=== PATIENT | male | born 1965 | race African-American/Black ===

== ENCOUNTER 2017-09-01 22:18 | Emergency (ER) | payer MEDICAID ==
[~2017-09-01] VITALS: Ht 175.3 cm; Wt 104.0 kg
[~2017-09-01 22:18] MED LIST: ASPIRIN; ENALAPRIL; FUROSEMIDE; METOPROLOL; NIFE60TA10; TOPIRAMATE; [UNRECOGNIZED DRUG - OTHER]
[2017-09-01] MEDS ORDERED: LORAZEPAM 0.5MG TABLET PO ONE (22:45)
[2017-09-01 23:18] LABS: BASOPHILS % 0.9 % (0.0-2.0); EOSINOPHILS % 1.5 % (0.0-5.0); HEMOGLOBIN. 14.5 g/dL (14.0-18.0); MEAN CORPUSCULAR HEMOGLOBIN 28.8 pg (28.0-32.0); MEAN CORPUSCULAR VOLUME 85.4 fL (80.0-94.0); MEAN PLATELET VOLUME 7.4 fl (7.4-10.4); MONOCYTES % 4.7 % (2.0-8.0); NEUTROPHILS % 73.9 % (40.0-76.0); PLATELET 249 x1000/uL (130-400); RED BLOOD CELL COUNT 5.04 mill/uL (4.7-6.1); RED CELL DISTRIBUTION WIDTH 13.7 % (11.6-14.6)
[2017-09-01 23:22] LABS: CHLORIDE 104 mEq/L (98-107)
[2017-09-01 23:26] LABS: INR 1.1; PROTHROMBIN TIME 11.4 sec (9.4-11.6)
[2017-09-02] VITALS: BP 99/82
== END 2017-09-02 00:02 | disposition home or self-care (01) ==
LOC: ER 22:26
DX: G40.909 Epilepsy, unspecified, not intractable, without status epilepticus (principal); I10 Essential (primary) hypertension; F17.200 Nicotine dependence, unspecified, uncomplicated; Z79.82 Long term (current) use of aspirin
CPT/HCPCS: 36415; 80053; 82962; 85025; 85610; 99284

== ENCOUNTER 2017-11-29 11:07 | Emergency (ER) | payer MEDICAID ==
[~2017-11-29] VITALS: Ht 175.3 cm; Wt 104.0 kg
[2017-11-29 13:32] LABS: BASOPHILS % 0.9 % (0.0-2.0); EOSINOPHILS % 1.1 % (0.0-5.0); HEMATOCRIT. 43.1 % (42.0-52.0); HEMOGLOBIN. 14.3 g/dL (14.0-18.0); LYMPHOCYTES % 12.9 % (20.0-50.0); MEAN CORPUSCULAR HEMOGLOBIN 28.5 pg (28.0-32.0); MEAN CORPUSCULAR VOLUME 85.7 fL (80.0-94.0); MEAN PLATELET VOLUME 7.7 fl (7.4-10.4); MONOCYTES % 5.3 % (2.0-8.0); NEUTROPHILS % 79.8 % (40.0-76.0); PLATELET 200 x1000/uL (130-400); RED BLOOD CELL COUNT 5.02 mill/uL (4.7-6.1)
[2017-11-29 13:39] LABS: CHLORIDE 103 mEq/L (98-107)
[2017-11-29 15:11] VITALS: BP 176/113
== END 2017-11-29 15:27 | disposition home or self-care (01) ==
LOC: ER 11:29
DX: R56.9 Unspecified convulsions (principal); I10 Essential (primary) hypertension; Z86.73 Personal history of transient ischemic attack (TIA), and cerebral infarction without residual deficits; Z79.82 Long term (current) use of aspirin; Z79.899 Other long term (current) drug therapy; Z88.1 Allergy status to other antibiotic agents
CPT/HCPCS: 36415; 80053; 85025; 99284; Z7610

== ENCOUNTER 2017-12-13 14:29 | Emergency (ER) | payer MEDICAID ==
[~2017-12-13] VITALS: Ht 162.6 cm; Wt 123.0 kg
[2017-12-13 15:32] LABS: BASOPHILS % 0.9 % (0.0-2.0); EOSINOPHILS % 2.8 % (0.0-5.0); HEMATOCRIT. 43.2 % (42.0-52.0); HEMOGLOBIN. 14.5 g/dL (14.0-18.0); LYMPHOCYTES % 20.4 % (20.0-50.0); MEAN CORPUSCULAR HEMOGLOBIN 29.1 pg (28.0-32.0); MEAN PLATELET VOLUME 7.6 fl (7.4-10.4); MONOCYTES % 7.1 % (2.0-8.0); NEUTROPHILS % 68.8 % (40.0-76.0); PLATELET 228 x1000/uL (130-400); RED BLOOD CELL COUNT 4.96 mill/uL (4.7-6.1); RED CELL DISTRIBUTION WIDTH 13.8 % (11.6-14.6)
[2017-12-13 15:35] LABS: CHLORIDE 106 mEq/L (98-107)
[2017-12-13 15:42] LABS: ETHANOL BLOOD < 10 mg/dL
[2017-12-13 17:01] VITALS: BP 136/84
== END 2017-12-13 17:12 | disposition home or self-care (01) ==
LOC: ER 14:47
DX: G40.909 Epilepsy, unspecified, not intractable, without status epilepticus (principal); F17.200 Nicotine dependence, unspecified, uncomplicated; F12.10 Cannabis abuse, uncomplicated; Z88.8 Allergy status to other drugs, medicaments and biological substances
CPT/HCPCS: 36415; 80053; 85025; 93005; 99285; G0482

== ENCOUNTER 2018-08-13 16:10 | Emergency (ER) | payer MEDICAID ==
[~2018-08-13] VITALS: Ht 175.3 cm; Wt 119.0 kg
[2018-08-13 17:48] LABS: BASOPHILS % 0.7 % (0.0-2.0); EOSINOPHILS % 0.9 % (0.0-5.0); HEMATOCRIT. 42.9 % (42.0-52.0); HEMOGLOBIN. 14.5 g/dL (14.0-18.0); LYMPHOCYTES % 14.9 % (20.0-50.0); MEAN CORPUSCULAR HEMOGLOBIN 29.4 pg (28.0-32.0); MEAN CORPUSCULAR VOLUME 86.8 fL (80.0-94.0); MEAN PLATELET VOLUME 7.2 fl (7.4-10.4); NEUTROPHILS % 77.5 % (40.0-76.0); PLATELET 331 x1000/uL (130-400); RED BLOOD CELL COUNT 4.94 mill/uL (4.7-6.1); RED CELL DISTRIBUTION WIDTH 13.5 % (11.6-14.6)
[2018-08-13 17:54] LABS: CHLORIDE 104 mEq/L (98-107)
[2018-08-13 18:06] LABS: CARBAMAZEPINE < 0.5 ug/mL (4-12); PHENOBARBITAL < 2.1 ug/mL (15.0-40.0)
[2018-08-13] MEDS ORDERED: SODIUM CHLORIDE 0.9% 500 ML IV ONE (18:30)
[2018-08-13] MEDS ORDERED: CLONIDINE 0.2MG TABLET PO ONE (19:00)
[2018-08-13 23:00] VITALS: BP 144/94
== END 2018-08-13 23:26 | disposition home or self-care (01) ==
LOC: ER 16:10
DX: I10 Essential (primary) hypertension (principal); R56.9 Unspecified convulsions; F12.10 Cannabis abuse, uncomplicated; Z86.73 Personal history of transient ischemic attack (TIA), and cerebral infarction without residual deficits; Z88.8 Allergy status to other drugs, medicaments and biological substances; Z79.899 Other long term (current) drug therapy
CPT/HCPCS: 36415; 80053; 80156; 80165; 80184; 80185; 85025; 99283; J7040; Z7610

== ENCOUNTER 2019-02-04 15:55 | Emergency (ER) | payer MEDICAID ==
[~2019-02-04] VITALS: Ht 182.9 cm; Wt 113.0 kg
[~2019-02-04 15:55] MED LIST changes: +AMLO10TA80 PO; +ASPI-1393 PO; -ASPIRIN; +CALC-1042 PO; -ENALAPRIL; -FUROSEMIDE; +LACO200T2 PO; +LIP40 PO; +LISI-604 PO; -METOPROLOL; -NIFE60TA10; -TOPIRAMATE; -[UNRECOGNIZED DRUG - OTHER]
[2019-02-04 15:58] VITALS: BP 148/96
== END 2019-02-04 17:00 | disposition left against medical advice (07) ==
LOC: ER 15:55
DX: R56.9 Unspecified convulsions (principal); Z53.21 Procedure and treatment not carried out due to patient leaving prior to being seen by health care provider

== ENCOUNTER 2019-04-27 14:13 | Emergency (ER) | payer MEDICAID ==
[~2019-04-27] VITALS: Ht 175.3 cm; Wt 120.0 kg
[2019-04-27 14:15] VITALS: BP 159/108
== END 2019-04-27 14:48 | disposition left against medical advice (07) ==
LOC: ER 14:13
DX: Z53.21 Procedure and treatment not carried out due to patient leaving prior to being seen by health care provider (principal)